=== PATIENT | female | born 1980 | race American Indian/Alaskan Native ===

== ENCOUNTER 2019-04-22 13:00 | Outpatient (RCR) | payer MEDICAID, SELFPAY ==
--- NOTE | 2019-03-25 17:35 | PT.OIE ---
Current Diagnoses Pain in right shoulder (03/25/19) Pain in left shoulder (03/25/19) Spinal stenosis, cervical region (03/25/19) Provider Visit Care Team Role Provider Type Rashmi Garcia MD Primary Care Provider Non-Staff Specialty: Family Practice Address: [address] [place] [address], [id number] Email: Kayley Tineo PA-C Attending Provider Non-Staff Specialty: Medical Address: [address] [place] [address], [id number] Email: Physical Therapy Initial Evaluation PT-OP-A Visit Information Start: 03/25/19 17:34 Freq: Status: Active Protocol: Document 03/25/19 17:35 EA (Rec: 03/25/19 17:39 EA [id number]) Out-Patient Physical Therapy Visit Information Visit Information Visit Type Initial Evaluation Visit Start Time 14:30 Visit Stop Time 15:10 Total Visit Minutes 35 Visit Number 1 PT-OP-B Current Condition Start: 03/25/19 17:34 Freq: Status: Active Protocol: Document 03/25/19 17:30 EA (Rec: 03/26/19 15:01 EA [id number]) Current Condition History of Current Condition Onset Date 2 years ago Current Complaints Multiple spinal and shoulder joint pain. History of Current Condition Patient reports that she has been complaining low,mid,and upper back pain since 2017. She reports an avid runner with distance accumulation of 100 miles per month. She states that she never do any leg strengthening an even stretching. She denies any significant injury recently and she reports that she just get over her pain everyday. She reports X-rays were taken 1 1/2 year ago with diagnosis of multiple spine/shoulder OA. Prior Treatments and Tests Formal PT treatment to both knees more than a year ago X-rays a year and half ago. Future Testing and Treatments Planned None reported. Treatment Goals Patient/Caregiver Goals 1. To learn exercise technique that could prevent to severe condition 2. To be able to run with no post back pain Prior Functional Status Baseline Function- ADL's Independent Baseline Function- Mobility Independent Baseline Function- Gait stiffed pelvis Baseline Function- Work/School Just finished college schooling. Used to work in [employer]. Baseline Function- Recreation/Hobbies Runs 100 miles/ week Current Functional Impairments (Reported) Functional Limitations- ADL's Indep. Pain and difficulty with activities that requires kneeling to both knees. Functional Limitations- Mobility/Gait increased toes out Functional Limitations- Work/School Not at work at this time. Just finished college school Functional Limitations- Recreation/ Unable to run 100 miles a week Hobbies due to increasing pain to both knees during and neck, thoracic, and low back pain post exercises. Personal Factors Other Personal Factors That May Effect Back pain, Vision problems Therapy/Recovery PT-OP-C Subjective Start: 03/25/19 17:34 Freq: Status: Active Protocol: Document 03/25/19 17:35 EA (Rec: 04/01/19 10:12 EA [id number]) OP-PT Subjective Patient Comments Patient Comments I'm a runner and I usually ran over my pain. Pt reports she not running well in the past weeks due to increasing pain. She reports she used to run 100 miles /week more than 1 month ago. Patient Reported Progress Worse Patient Questionnaires Neck Disability Index NDI Score 13/50 Neck Disability Index Impairment 20 to 39% Impaired (Score 10- 19) Quick Dash- Upper Extremity Quick Dash UE Score 30 Quick Dash UE Impairment 20 to 39% Impaired (Score 20- 39) PT-OP-J Posture/Palpation/Skin Start: 03/25/19 17:34 Freq: Status: Active Protocol: Document 03/25/19 17:35 EA (Rec: 04/01/19 10:12 EA [id number]) Posture Evaluation Comments Posture Comments Good upper body posture with very slight fwd head and rounded shoulders Bilateral knee Valgus. Biltaral severe depressed foot arch/pes miki Palpation Assessment Location One Palpation Location B traps, ,left lat mid cervical, Parspinals & thoracis, scap borde Palpation Findings Soft Tissue Tightness Tenderness Trigger Point PT-OP-K Range of Motion Start: 03/25/19 17:34 Freq: Status: Active Protocol: Document 03/25/19 17:35 EA (Rec: 04/01/19 10:12 EA [id number]) Cervical Spine Range of Motion Cervical Spine Active Percentage Testing Position Sitting Flexion 100 Extension 95 Rotation Left 90 Rotation Right 95 Lateral Flexion Left 90 Lateral Flexion Right 90 ROM Limitations Soft Tissue Tightness Lumbar Spine Range of Motion Lumbar Spine Active Percentage Testing Position Standing Flexion 100 Extension 95 Rotation Left 100 Rotation Right 100 Lateral Flexion Left 95 Lateral Flexion Right 95 ROM Limitations Soft Tissue Tightness Shoulder Goniometric Range of Motion Shoulder Right Active Shoulder ROM WFL Yes Internal Rotation 50 Left Active Shoulder ROM WFL Yes Internal Rotation 50 Hip Goniometric Range of Motion Hip Right Active Hip ROM WFL Yes Left Active Hip ROM WFL Yes Knee Goniometric Range of Motion Knee Left Knee ROM WFL Yes Right Knee ROM WFL Yes PT-OP-L Special Tests Start: 03/25/19 17:34 Freq: Status: Active Protocol: Document 03/25/19 17:35 EA (Rec: 04/01/19 10:12 EA [id number]) Special Tests Shoulder Special Tests Kathleen Juan Francisco Impingement Test Results - Elevation Impingement Test Results - PT-OP-M Strength Start: 03/25/19 17:34 Freq: Status: Active Protocol: Document 03/25/19 17:35 EA (Rec: 04/01/19 10:12 EA [id number]) Cervical Spine Strength Cervical Spine Manual Muscle Testing Testing Position Supine Reason Not Measured WFL Trunk Strength Trunk Manual Muscle Testing Testing Position Supine Reason Not Measured WFL Shoulder Strength Shoulder Manual Muscle Testing Right Reason Not Measured WFL Left Reason Not Measured WFL PT-OP-T Assessment and Plan Start: 03/25/19 17:34 Freq: Status: Active Protocol: Document 03/25/19 17:35 EA (Rec: 03/25/19 17:39 EA [id number]) Physical Therapy Assessment Rehab Potential Rehabilitation Potential Good Evaluation Complexity Number of Personal Factors/Comorbidities 1-2 Number of Body Systems Impaired 3 Clinical Presentation at Evaluation Evolving Impairments Impairments Gait Pain Posture ROM Soft Tissue Mobility Goals Four Impairment NDI score 13/50 Jail Goal (LTG) NDI score of < 10/50 LTG Duration 4 wks Three Impairment Impaired information about progressive exercises 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 LTG Duration 5 wks Two Impairment Impaired running distance Jail Goal (LTG) Patient will run more than 50 miles a week with no increasing pain LTG Duration 5 wks One Impairment No HEP in place Jail Goal (LTG) Patient will perform independent HEP on consistent progressive exercises. LTG Duration 4 wks Assessment Summary Assessment Pleasant 38 year old F patient with referring diagnosis of multiple joints OA and mostly at cervicothoracic spine and shoulders. Today patient presented with multiple tender points to both lateral side of the spine, scap borders and both traps, and left shoulder crepitus. Cervical ROM noted difficulty turning to left shoulder due to pain to left cervical region which indicative of slight facets dysfunction at C4-C6 and muscle tightness. Postural analysis reveals slight fwd head with rounded shoulder; noted bilateral knee valgus with severe pes planus . Based on history taking of regular fitness routine and high activity level, patient may be suffering with lacked proper conditioning and lack of flexibility routine exercises. Fascial tightness is also evident to entire back . Patient would greatly benefit with skilled PT to enhance learning in proper conditioning/progressive fitness exercises, correction of muscular imbalances, and LE 's alignment correction. Physical Therapy Plan Frequency and Duration Frequency of Treatment 2x/Week Duration of Treatment 8 wks Plan of Care Start Date 03/25/19 Plan of Care End Date 05/20/19 Therapeutic Interventions Therapeutic Interventions Home Exercise Program Joint Mobilizations Manual Therapy Patient/Caregiver Education Self-Care/Home Management Soft Tissue Mobilization Therapeutic Exercises Next Visit Focus/Plan Next Note Type Treatment Note
--- NOTE | 2019-03-25 17:40 | PT.OPPOC ---
Current Diagnoses Pain in right shoulder (03/25/19) Pain in left shoulder (03/25/19) Spinal stenosis, cervical region (03/25/19) Provider Visit Care Team Role Provider Type Rashmi Garcia MD Primary Care Provider Non-Staff Specialty: Family Practice Address: [address] [place] [address], [id number] Email: Kayley Tineo PA-C Attending Provider Non-Staff Specialty: Medical Address: [address] [place] [address], [id number] Email: Plan Of Care PT-OP-T Assessment and Plan Start: 03/25/19 17:34 Freq: Status: Active Protocol: Document 03/25/19 17:35 EA (Rec: 03/25/19 17:39 EA [id number]) Physical Therapy Assessment Rehab Potential Rehabilitation Potential Good Evaluation Complexity Number of Personal Factors/Comorbidities 1-2 Number of Body Systems Impaired 3 Clinical Presentation at Evaluation Evolving Impairments Impairments Gait Pain Posture ROM Soft Tissue Mobility Goals Four Impairment NDI score 13/50 Nursing Home Goal (LTG) NDI score of < 10/50 LTG Duration 4 wks Three Impairment Impaired information about progressive exercises Air [employer]ore Goal (LTG) Patient will perform progressive running safely with increase learning toward exercises recovery. LTG Duration 5 wks Two Impairment Impaired running distance Nursing Home Goal (LTG) Patient will run more than 50 miles a week with no increasing pain LTG Duration 5 wks One Impairment No HEP in place Nursing Home Goal (LTG) Patient will perform independent HEP on consistent progressive exercises. LTG Duration 4 wks Assessment Summary Assessment Pleasant 38 year old F patient with referring diagnosis of multiple joints OA and mostly at cervicothoracic spine and shoulders. Today patient presented with multiple tender points to both lateral side of the spine, scap borders and both traps, and left shoulder crepitus. Cervical ROM noted difficulty turning to left shoulder due to pain to left cervical region which indicative of slight facets dysfunction at C4-C6 and muscle tightness. Postural analysis reveals slight fwd head with rounded shoulder; noted bilateral knee valgus with severe pes planus . Based on history taking of regular fitness routine and high activity level, patient may be suffering with lacked proper conditioning and lack of flexibility routine exercises. Fascial tightness is also evident to entire back . Patient would greatly benefit with skilled PT to enhance learning in proper conditioning/progressive fitness exercises, correction of muscular imbalances, and LE 's alignment correction. Physical Therapy Plan Frequency and Duration Frequency of Treatment 2x/Week Duration of Treatment 8 wks Plan of Care Start Date 03/25/19 Plan of Care End Date 05/20/19 Therapeutic Interventions Therapeutic Interventions Home Exercise Program Joint Mobilizations Manual Therapy Patient/Caregiver Education Self-Care/Home Management Soft Tissue Mobilization Therapeutic Exercises Next Visit Focus/Plan Next Note Type Treatment Note Plan of Care Dates Plan of Care Start Date 03/25/19 Plan of Care End Date 05/20/19 Please Sign and Return: I have reviewed this Plan of Care and certify that the skilled therapy services above are required to meet the patient?s needs. Physician Signature Date Printed Name and Credentials Clinical Instructor Signature Printed Name and Credentials
--- NOTE | 2019-04-02 15:57 | PT.OTN ---
Current Diagnoses Pain in right shoulder (04/02/19) Pain in left shoulder (04/02/19) Spinal stenosis, cervical region (04/02/19) Physical Therapy Treatment Note PT-OP-A Visit Information Start: 03/25/19 17:34 Freq: Status: Active Protocol: Document 04/02/19 15:11 EA (Rec: 04/02/19 15:18 EA [id number]) Out-Patient Physical Therapy Visit Information Visit Information Visit Type Treatment Note Visit Start Time 14:30 Visit Stop Time 15:15 Total Visit Minutes 43 Visit Number 2 PT-OP-B Current Condition Start: 03/25/19 17:34 Freq: Status: Active Protocol: Document 03/25/19 17:30 EA (Rec: 03/26/19 15:01 EA [id number]) Current Condition History of Current Condition Onset Date 2 years ago Current Complaints Multiple spinal and shoulder joint pain. History of Current Condition Patient reports that she has been complaining low,mid,and upper back pain since 2017. She reports an avid runner with distance accumulation of 100 miles per month. She states that she never do any leg strenghening an even stretching. She denies any significant injury recently and she reports that she just get over her pain everyday. She reports X-rays were taken 1 1/2 year ago with diagnosis of multiple spine/shoulder OA. Prior Treatments and Tests Formal PT treament to both knees more than a year ago X-rays a year and half ago. Future Testing and Treatments Planned None reported. Treatment Goals Patient/Caregiver Goals 1. To learn exercise technique that could prevent to severe condition 2. To be able to run with no post back pain Prior Functional Status Baseline Function- ADL's Independent Baseline Function- Mobility Independent Baseline Function- Gait stiffed pelvis Baseline Function- Work/School Just finished college schooling. Used to work in [email or web address]. Baseline Function- Recreation/Hobbies Runs 100 miles/ week Current Functional Impairments (Reported) Functional Limitations- ADL's Indep. Pain and difficulty with activites that requires kneeling to both knees. Functional Limitations- Mobility/Gait increased toes out Functional Limitations- Work/School Not at work at this time. Just finished college school Functional Limitations- Recreation/ Unable to run 100 miles a week Hobbies due to increasing pain to both knees during and neck, thoracic, and low back pain post exercises. Personal Factors Other Personal Factors That May Effect Back pain, Vision problems Therapy/Recovery PT-OP-C Subjective Start: 03/25/19 17:34 Freq: Status: Active Protocol: Document 04/02/19 15:11 EA (Rec: 04/02/19 15:18 EA [id number]) OP-PT Subjective Patient Comments Patient Comments Pt reports both knees, shoulders and neck still sore. PT-OP-J Posture/Palpation/Skin Start: 03/25/19 17:34 Freq: Status: Active Protocol: Document 03/25/19 17:35 EA (Rec: 04/01/19 10:12 EA [id number]) Posture Evaluation Comments Posture Comments Good upper body posture with very slight fwd head and rounded shoulders Bilateral knee Valgus. Biltaral severe depressed foot arch/pes miki Palpation Assessment Location One Palpation Location B traps, ,left lat mid cervical, Parspinals & thoracis, scap borde Palpation Findings Soft Tissue Tightness Tenderness Trigger Point PT-OP-K Range of Motion Start: 03/25/19 17:34 Freq: Status: Active Protocol: Document 03/25/19 17:35 EA (Rec: 04/01/19 10:12 EA [id number]) Cervical Spine Range of Motion Cervical Spine Active Percentage Testing Position Sitting Flexion 100 Extension 95 Rotation Left 90 Rotation Right 95 Lateral Flexion Left 90 Lateral Flexion Right 90 ROM Limitations Soft Tissue Tightness Lumbar Spine Range of Motion Lumbar Spine Active Percentage Testing Position Standing Flexion 100 Extension 95 Rotation Left 100 Rotation Right 100 Lateral Flexion Left 95 Lateral Flexion Right 95 ROM Limitations Soft Tissue Tightness Shoulder Goniometric Range of Motion Shoulder Right Active Shoulder ROM WFL Yes Internal Rotation 50 Left Active Shoulder ROM WFL Yes Internal Rotation 50 Hip Goniometric Range of Motion Hip Right Active Hip ROM WFL Yes Left Active Hip ROM WFL Yes Knee Goniometric Range of Motion Knee Left Knee ROM WFL Yes Right Knee ROM WFL Yes PT-OP-L Special Tests Start: 03/25/19 17:34 Freq: Status: Active Protocol: Document 03/25/19 17:35 EA (Rec: 04/01/19 10:12 EA [id number]) Special Tests Shoulder Special Tests Kathleen Juan Francisco Impingement Test Results - Elevation Impingement Test Results - PT-OP-M Strength Start: 03/25/19 17:34 Freq: Status: Active Protocol: Document 03/25/19 17:35 EA (Rec: 04/01/19 10:12 EA [id number]) Cervical Spine Strength Cervical Spine Manual Muscle Testing Testing Position Supine Reason Not Measured WFL Trunk Strength Trunk Manual Muscle Testing Testing Position Supine Reason Not Measured WFL Shoulder Strength Shoulder Manual Muscle Testing Right Reason Not Measured WFL Left Reason Not Measured WFL PT-OP-Q Treatments Start: 03/25/19 17:34 Freq: Status: Active Protocol: Document 04/02/19 15:11 EA (Rec: 04/02/19 15:18 EA [id number]) Cardio Equipment Treadmill Duration (Minutes) 8 Speed 3.7 Therapeutic Exercises Supine Exercises 3 Supine Exercise Name Partial sit-up w/ marching Reps/Minutes x 20 reps x 2 sets 2 Supine Exercise Name PPT with SLR Reps/Minutes 10 reps x 2 sets each leg 1 Supine Exercise Name PPT w/ marching Reps/Minutes x 20 reps x 2 sets Standing Exercises 1 Standing Exercise Name Corrected squats Reps/Minutes x 15 reps x 2 Other Exercises 3 Other Exercise Name Nichole pose Reps/Minutes x 30SH x 2 reps 2 Other Exercise Name Camel and Cat Reps/Minutes x 15 reps 1 Other Exercise Name Thread and needle Reps/Minutes x 10 reps x 2 sets Manual Therapy Treatment Soft Tissue Mobilization 1 Body Location Pracervicals, upper traps, parathoracis Mobilization Type Myofascial Release Rolling Trigger Point Release Body Position Prone PT-OP-R Modalities Start: 03/25/19 17:34 Freq: Status: Active Protocol: Document 04/02/19 15:11 EA (Rec: 04/02/19 15:18 EA [id number]) Hot Pack/Cold Pack Treatment Hot Pack Location upper back and neck Treatment Duration (minutes) 10 Patient Tolerance Good PT-OP-T Assessment and Plan Start: 03/25/19 17:34 Freq: Status: Active Protocol: Document 04/02/19 15:55 EA (Rec: 04/02/19 15:57 EA [id number]) Physical Therapy Assessment Assessment Summary Assessment Patient exhibit weak core and hyper arm swing during slow jog. Requires cues with exercises form. Tolerated treatment. Physical Therapy Plan Next Visit Focus/Plan Next Note Type Treatment Note Next Visit Plan provide HEP images
--- NOTE | 2019-04-04 17:20 | PT.OTN ---
Current Diagnoses Pain in right shoulder (04/04/19) Pain in left shoulder (04/04/19) Spinal stenosis, cervical region (04/04/19) Physical Therapy Treatment Note PT-OP-A Visit Information Start: 03/25/19 17:34 Freq: Status: Active Protocol: Document 04/04/19 16:42 EA (Rec: 04/04/19 16:53 EA [id number]) Out-Patient Physical Therapy Visit Information Visit Information Visit Type Initial Evaluation Visit Start Time 15:15 Visit Stop Time 16:00 Total Visit Minutes 48 Visit Number 3 PT-OP-B Current Condition Start: 03/25/19 17:34 Freq: Status: Active Protocol: Document 03/25/19 17:30 EA (Rec: 03/26/19 15:01 EA [id number]) Current Condition History of Current Condition Onset Date 2 years ago Current Complaints Multiple spinal and shoulder joint pain. History of Current Condition Patient reports that she has been complaining low,mid,and upper back pain since 2017. She reports an avid runner with distance accumulation of 100 miles per month. She states that she never do any leg strenghening an even stretching. She denies any significant injury recently and she reports that she just get over her pain everyday. She reports X-rays were taken 1 1/2 year ago with diagnosis of multiple spine/shoulder OA. Prior Treatments and Tests Formal PT treament to both knees more than a year ago X-rays a year and half ago. Future Testing and Treatments Planned None reported. Treatment Goals Patient/Caregiver Goals 1. To learn exercise technique that could prevent to severe condition 2. To be able to run with no post back pain Prior Functional Status Baseline Function- ADL's Independent Baseline Function- Mobility Independent Baseline Function- Gait stiffed pelvis Baseline Function- Work/School Just finished college schooling. Used to work in [email or web address]. Baseline Function- Recreation/Hobbies Runs 100 miles/ week Current Functional Impairments (Reported) Functional Limitations- ADL's Indep. Pain and difficulty with activites that requires kneeling to both knees. Functional Limitations- Mobility/Gait increased toes out Functional Limitations- Work/School Not at work at this time. Just finished college school Functional Limitations- Recreation/ Unable to run 100 miles a week Hobbies due to increasing pain to both knees during and neck, thoracic, and low back pain post exercises. Personal Factors Other Personal Factors That May Effect Back pain, Vision problems Therapy/Recovery PT-OP-C Subjective Start: 03/25/19 17:34 Freq: Status: Active Protocol: Document 04/04/19 16:42 EA (Rec: 04/04/19 16:53 EA [id number]) OP-PT Subjective Patient Comments Patient Comments Pt reports feels therex is helping her. PT-OP-J Posture/Palpation/Skin Start: 03/25/19 17:34 Freq: Status: Active Protocol: Document 03/25/19 17:35 EA (Rec: 04/01/19 10:12 EA [id number]) Posture Evaluation Comments Posture Comments Good upper body posture with very slight fwd head and rounded shoulders Bilateral knee Valgus. Biltaral severe depressed foot arch/pes miki Palpation Assessment Location One Palpation Location B traps, ,left lat mid cervical, Parspinals & thoracis, scap borde Palpation Findings Soft Tissue Tightness Tenderness Trigger Point PT-OP-K Range of Motion Start: 03/25/19 17:34 Freq: Status: Active Protocol: Document 03/25/19 17:35 EA (Rec: 04/01/19 10:12 EA [id number]) Cervical Spine Range of Motion Cervical Spine Active Percentage Testing Position Sitting Flexion 100 Extension 95 Rotation Left 90 Rotation Right 95 Lateral Flexion Left 90 Lateral Flexion Right 90 ROM Limitations Soft Tissue Tightness Lumbar Spine Range of Motion Lumbar Spine Active Percentage Testing Position Standing Flexion 100 Extension 95 Rotation Left 100 Rotation Right 100 Lateral Flexion Left 95 Lateral Flexion Right 95 ROM Limitations Soft Tissue Tightness Shoulder Goniometric Range of Motion Shoulder Right Active Shoulder ROM WFL Yes Internal Rotation 50 Left Active Shoulder ROM WFL Yes Internal Rotation 50 Hip Goniometric Range of Motion Hip Right Active Hip ROM WFL Yes Left Active Hip ROM WFL Yes Knee Goniometric Range of Motion Knee Left Knee ROM WFL Yes Right Knee ROM WFL Yes PT-OP-L Special Tests Start: 03/25/19 17:34 Freq: Status: Active Protocol: Document 03/25/19 17:35 EA (Rec: 04/01/19 10:12 EA [id number]) Special Tests Shoulder Special Tests Kathleen Juan Francisco Impingement Test Results - Elevation Impingement Test Results - PT-OP-M Strength Start: 03/25/19 17:34 Freq: Status: Active Protocol: Document 03/25/19 17:35 EA (Rec: 04/01/19 10:12 EA [id number]) Cervical Spine Strength Cervical Spine Manual Muscle Testing Testing Position Supine Reason Not Measured WFL Trunk Strength Trunk Manual Muscle Testing Testing Position Supine Reason Not Measured WFL Shoulder Strength Shoulder Manual Muscle Testing Right Reason Not Measured WFL Left Reason Not Measured WFL PT-OP-Q Treatments Start: 03/25/19 17:34 Freq: Status: Active Protocol: Document 04/04/19 16:42 EA (Rec: 04/04/19 16:53 EA [id number]) Cardio Equipment Treadmill Duration (Minutes) 8 Speed 3.7 Therapeutic Exercises Supine Exercises 3 Supine Exercise Name Partial sit-up w/ marching Reps/Minutes x 20 reps x 2 sets 2 Supine Exercise Name PPT with SLR Reps/Minutes 10 reps x 2 sets each leg 1 Supine Exercise Name PPT w/ marching Reps/Minutes x 20 reps x 2 sets Standing Exercises 1 Standing Exercise Name Corrected squats Reps/Minutes x 15 reps x 2 Other Exercises 3 Other Exercise Name Nichole pose Reps/Minutes x 30SH x 2 reps 2 Other Exercise Name Camel and Cat Reps/Minutes x 15 reps 1 Other Exercise Name Thread and needle Reps/Minutes x 10 reps x 2 sets Manual Therapy Treatment Soft Tissue Mobilization 1 Body Location Pracervicals, upper traps, parathoracis Mobilization Type Myofascial Release Rolling Trigger Point Release Body Position Prone PT-OP-R Modalities Start: 03/25/19 17:34 Freq: Status: Active Protocol: Document 04/04/19 16:42 EA (Rec: 04/04/19 16:53 EA [id number]) Hot Pack/Cold Pack Treatment Hot Pack Location upper back and neck Treatment Duration (minutes) 10 Patient Tolerance Good PT-OP-T Assessment and Plan Start: 03/25/19 17:34 Freq: Status: Active Protocol: Document 04/04/19 16:42 EA (Rec: 04/04/19 16:53 EA [id number]) Physical Therapy Assessment Assessment Summary Assessment Patient exhibits improved exercise form and tolerated treatment with no signs of discomfort. Physical Therapy Plan Next Visit Focus/Plan Next Note Type Treatment Note Next Visit Plan provide HEP images
--- NOTE | 2019-04-11 16:54 | PT.OTN ---
Current Diagnoses Pain in right shoulder (04/11/19) Pain in left shoulder (04/11/19) Spinal stenosis, cervical region (04/11/19) Physical Therapy Treatment Note PT-OP-A Visit Information Start: 03/25/19 17:34 Freq: Status: Active Protocol: Document 04/11/19 15:56 EA (Rec: 04/11/19 16:02 EA [id number]) Out-Patient Physical Therapy Visit Information Visit Information Visit Type Treatment Note Visit Start Time 15:15 Visit Stop Time 16:08 Total Visit Minutes 53 Visit Number 4 PT-OP-B Current Condition Start: 03/25/19 17:34 Freq: Status: Active Protocol: Document 03/25/19 17:30 EA (Rec: 03/26/19 15:01 EA [id number]) Current Condition History of Current Condition Onset Date 2 years ago Current Complaints Multiple spinal and shoulder joint pain. History of Current Condition Patient reports that she has been complaining low,mid,and upper back pain since 2017. She reports an avid runner with distance accumulation of 100 miles per month. She states that she never do any leg strenghening an even stretching. She denies any significant injury recently and she reports that she just get over her pain everyday. She reports X-rays were taken 1 1/2 year ago with diagnosis of multiple spine/shoulder OA. Prior Treatments and Tests Formal PT treament to both knees more than a year ago X-rays a year and half ago. Future Testing and Treatments Planned None reported. Treatment Goals Patient/Caregiver Goals 1. To learn exercise technique that could prevent to severe condition 2. To be able to run with no post back pain Prior Functional Status Baseline Function- ADL's Independent Baseline Function- Mobility Independent Baseline Function- Gait stiffed pelvis Baseline Function- Work/School Just finished college schooling. Used to work in [employer]. Baseline Function- Recreation/Hobbies Runs 100 miles/ week Current Functional Impairments (Reported) Functional Limitations- ADL's Indep. Pain and difficulty with activites that requires kneeling to both knees. Functional Limitations- Mobility/Gait increased toes out Functional Limitations- Work/School Not at work at this time. Just finished college school Functional Limitations- Recreation/ Unable to run 100 miles a week Hobbies due to increasing pain to both knees during and neck, thoracic, and low back pain post exercises. Personal Factors Other Personal Factors That May Effect Back pain, Vision problems Therapy/Recovery PT-OP-C Subjective Start: 03/25/19 17:34 Freq: Status: Active Protocol: Document 04/11/19 15:56 EA (Rec: 04/11/19 16:02 EA [id number]) OP-PT Subjective Patient Comments Patient Comments Pt reportslow back hurts very minimal after slowing down with running. 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 PT-OP-J Posture/Palpation/Skin Start: 03/25/19 17:34 Freq: Status: Active Protocol: Document 03/25/19 17:35 EA (Rec: 04/01/19 10:12 EA [id number]) Posture Evaluation Comments Posture Comments Good upper body posture with very slight fwd head and rounded shoulders Bilateral knee Valgus. Biltaral severe depressed foot arch/pes miki Palpation Assessment Location One Palpation Location B traps, ,left lat mid cervical, Parspinals & thoracis, scap borde Palpation Findings Soft Tissue Tightness Tenderness Trigger Point PT-OP-K Range of Motion Start: 03/25/19 17:34 Freq: Status: Active Protocol: Document 03/25/19 17:35 EA (Rec: 04/01/19 10:12 EA [id number]) Cervical Spine Range of Motion Cervical Spine Active Percentage Testing Position Sitting Flexion 100 Extension 95 Rotation Left 90 Rotation Right 95 Lateral Flexion Left 90 Lateral Flexion Right 90 ROM Limitations Soft Tissue Tightness Lumbar Spine Range of Motion Lumbar Spine Active Percentage Testing Position Standing Flexion 100 Extension 95 Rotation Left 100 Rotation Right 100 Lateral Flexion Left 95 Lateral Flexion Right 95 ROM Limitations Soft Tissue Tightness Shoulder Goniometric Range of Motion Shoulder Right Active Shoulder ROM WFL Yes Internal Rotation 50 Left Active Shoulder ROM WFL Yes Internal Rotation 50 Hip Goniometric Range of Motion Hip Right Active Hip ROM WFL Yes Left Active Hip ROM WFL Yes Knee Goniometric Range of Motion Knee Left Knee ROM WFL Yes Right Knee ROM WFL Yes PT-OP-L Special Tests Start: 03/25/19 17:34 Freq: Status: Active Protocol: Document 03/25/19 17:35 EA (Rec: 04/01/19 10:12 EA [id number]) Special Tests Shoulder Special Tests Kathleen Juan Francisco Impingement Test Results - Elevation Impingement Test Results - PT-OP-M Strength Start: 03/25/19 17:34 Freq: Status: Active Protocol: Document 03/25/19 17:35 EA (Rec: 04/01/19 10:12 EA [id number]) Cervical Spine Strength Cervical Spine Manual Muscle Testing Testing Position Supine Reason Not Measured WFL Trunk Strength Trunk Manual Muscle Testing Testing Position Supine Reason Not Measured WFL Shoulder Strength Shoulder Manual Muscle Testing Right Reason Not Measured WFL Left Reason Not Measured WFL PT-OP-Q Treatments Start: 03/25/19 17:34 Freq: Status: Active Protocol: Document 04/11/19 15:56 EA (Rec: 04/11/19 16:02 EA [id number]) Cardio Equipment Treadmill Duration (Minutes) 5 Speed 3.7 Therapeutic Exercises Supine Exercises 3 Supine Exercise Name Partial sit-up w/ marching Reps/Minutes x 20 reps x 2 sets 2 Supine Exercise Name PPT with SLR Reps/Minutes 10 reps x 2 sets each leg 1 Supine Exercise Name PPT w/ marching Reps/Minutes x 20 reps x 2 sets Prone Exercises 1 Prone Exercise Name Passive quads stretch Reps/Minutes x 15sh x 2 reps Other Exercises 5 Other Exercise Name Elbow Plank: Leg side to side, Mountain climber, hip extension Reps/Minutes x 30 sec each 4 Other Exercise Name side step squat with DB front raise Resistance YTB Reps/Minutes x 12 ft x 2 laps 3 Other Exercise Name Nichole pose Reps/Minutes x 30SH x 2 reps 2 Other Exercise Name Camel and Cat Reps/Minutes x 15 reps 1 Other Exercise Name Thread and needle Reps/Minutes x 10 reps x 2 sets Manual Therapy Treatment Soft Tissue Mobilization 1 Body Location Pracervicals, upper traps, parathoracis Mobilization Type Myofascial Release Rolling Trigger Point Release Body Position Prone PT-OP-R Modalities Start: 03/25/19 17:34 Freq: Status: Active Protocol: Document 04/11/19 15:56 EA (Rec: 04/11/19 16:02 EA [id number]) Hot Pack/Cold Pack Treatment Hot Pack Location upper back and neck Treatment Duration (minutes) 10 Patient Tolerance Good PT-OP-T Assessment and Plan Start: 03/25/19 17:34 Freq: Status: Active Protocol: Document 04/11/19 16:38 EA (Rec: 04/11/19 16:40 EA [id number]) Physical Therapy Assessment Assessment Summary Assessment Patient performed therex with good form; cues to plank exercises insure less pressure to lumbar spine. Patient is very glad with her treatment session. Cont with current plan, provide HEP next visit with images. Physical Therapy Plan Next Visit Focus/Plan Next Note Type Treatment Note Next Visit Plan HEP with images
--- NOTE | 2019-04-11 16:56 | PT.OTN ---
Current Diagnoses Pain in right shoulder (04/11/19) Pain in left shoulder (04/11/19) Spinal stenosis, cervical region (04/11/19) Physical Therapy Treatment Note PT-OP-A Visit Information Start: 03/25/19 17:34 Freq: Status: Active Protocol: Document 04/11/19 15:56 EA (Rec: 04/11/19 16:02 EA [id number]) Out-Patient Physical Therapy Visit Information Visit Information Visit Type Treatment Note Visit Start Time 15:15 Visit Stop Time 16:08 Total Visit Minutes 53 Visit Number 4 PT-OP-B Current Condition Start: 03/25/19 17:34 Freq: Status: Active Protocol: Document 03/25/19 17:30 EA (Rec: 03/26/19 15:01 EA [id number]) Current Condition History of Current Condition Onset Date 2 years ago Current Complaints Multiple spinal and shoulder joint pain. History of Current Condition Patient reports that she has been complaining low,mid,and upper back pain since 2017. She reports an avid runner with distance accumulation of 100 miles per month. She states that she never do any leg strenghening an even stretching. She denies any significant injury recently and she reports that she just get over her pain everyday. She reports X-rays were taken 1 1/2 year ago with diagnosis of multiple spine/shoulder OA. Prior Treatments and Tests Formal PT treament to both knees more than a year ago X-rays a year and half ago. Future Testing and Treatments Planned None reported. Treatment Goals Patient/Caregiver Goals 1. To learn exercise technique that could prevent to severe condition 2. To be able to run with no post back pain Prior Functional Status Baseline Function- ADL's Independent Baseline Function- Mobility Independent Baseline Function- Gait stiffed pelvis Baseline Function- Work/School Just finished college schooling. Used to work in [employer]. Baseline Function- Recreation/Hobbies Runs 100 miles/ week Current Functional Impairments (Reported) Functional Limitations- ADL's Indep. Pain and difficulty with activites that requires kneeling to both knees. Functional Limitations- Mobility/Gait increased toes out Functional Limitations- Work/School Not at work at this time. Just finished college school Functional Limitations- Recreation/ Unable to run 100 miles a week Hobbies due to increasing pain to both knees during and neck, thoracic, and low back pain post exercises. Personal Factors Other Personal Factors That May Effect Back pain, Vision problems Therapy/Recovery PT-OP-C Subjective Start: 03/25/19 17:34 Freq: Status: Active Protocol: Document 04/11/19 15:56 EA (Rec: 04/11/19 16:02 EA [id number]) OP-PT Subjective Patient Comments Patient Comments Pt reportslow back hurts very minimal after slowing down with running. 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 PT-OP-J Posture/Palpation/Skin Start: 03/25/19 17:34 Freq: Status: Active Protocol: Document 03/25/19 17:35 EA (Rec: 04/01/19 10:12 EA [id number]) Posture Evaluation Comments Posture Comments Good upper body posture with very slight fwd head and rounded shoulders Bilateral knee Valgus. Biltaral severe depressed foot arch/pes miki Palpation Assessment Location One Palpation Location B traps, ,left lat mid cervical, Parspinals & thoracis, scap borde Palpation Findings Soft Tissue Tightness Tenderness Trigger Point PT-OP-K Range of Motion Start: 03/25/19 17:34 Freq: Status: Active Protocol: Document 03/25/19 17:35 EA (Rec: 04/01/19 10:12 EA [id number]) Cervical Spine Range of Motion Cervical Spine Active Percentage Testing Position Sitting Flexion 100 Extension 95 Rotation Left 90 Rotation Right 95 Lateral Flexion Left 90 Lateral Flexion Right 90 ROM Limitations Soft Tissue Tightness Lumbar Spine Range of Motion Lumbar Spine Active Percentage Testing Position Standing Flexion 100 Extension 95 Rotation Left 100 Rotation Right 100 Lateral Flexion Left 95 Lateral Flexion Right 95 ROM Limitations Soft Tissue Tightness Shoulder Goniometric Range of Motion Shoulder Right Active Shoulder ROM WFL Yes Internal Rotation 50 Left Active Shoulder ROM WFL Yes Internal Rotation 50 Hip Goniometric Range of Motion Hip Right Active Hip ROM WFL Yes Left Active Hip ROM WFL Yes Knee Goniometric Range of Motion Knee Left Knee ROM WFL Yes Right Knee ROM WFL Yes PT-OP-L Special Tests Start: 03/25/19 17:34 Freq: Status: Active Protocol: Document 03/25/19 17:35 EA (Rec: 04/01/19 10:12 EA [id number]) Special Tests Shoulder Special Tests Kathleen Juan Francisco Impingement Test Results - Elevation Impingement Test Results - PT-OP-M Strength Start: 03/25/19 17:34 Freq: Status: Active Protocol: Document 03/25/19 17:35 EA (Rec: 04/01/19 10:12 EA [id number]) Cervical Spine Strength Cervical Spine Manual Muscle Testing Testing Position Supine Reason Not Measured WFL Trunk Strength Trunk Manual Muscle Testing Testing Position Supine Reason Not Measured WFL Shoulder Strength Shoulder Manual Muscle Testing Right Reason Not Measured WFL Left Reason Not Measured WFL PT-OP-Q Treatments Start: 03/25/19 17:34 Freq: Status: Active Protocol: Document 04/11/19 15:56 EA (Rec: 04/11/19 16:02 EA [id number]) Cardio Equipment Treadmill Duration (Minutes) 5 Speed 3.7 Therapeutic Exercises Supine Exercises 3 Supine Exercise Name Partial sit-up w/ marching Reps/Minutes x 20 reps x 2 sets 2 Supine Exercise Name PPT with SLR Reps/Minutes 10 reps x 2 sets each leg 1 Supine Exercise Name PPT w/ marching Reps/Minutes x 20 reps x 2 sets Prone Exercises 1 Prone Exercise Name Passive quads stretch Reps/Minutes x 15sh x 2 reps Other Exercises 5 Other Exercise Name Elbow Plank: Leg side to side, Mountain climber, hip extension Reps/Minutes x 30 sec each 4 Other Exercise Name side step squat with DB front raise Resistance YTB Reps/Minutes x 12 ft x 2 laps 3 Other Exercise Name Nichole pose Reps/Minutes x 30SH x 2 reps 2 Other Exercise Name Camel and Cat Reps/Minutes x 15 reps 1 Other Exercise Name Thread and needle Reps/Minutes x 10 reps x 2 sets Manual Therapy Treatment Soft Tissue Mobilization 1 Body Location Pracervicals, upper traps, parathoracis Mobilization Type Myofascial Release Rolling Trigger Point Release Body Position Prone PT-OP-R Modalities Start: 03/25/19 17:34 Freq: Status: Active Protocol: Document 04/11/19 15:56 EA (Rec: 04/11/19 16:02 EA [id number]) Hot Pack/Cold Pack Treatment Hot Pack Location upper back and neck Treatment Duration (minutes) 10 Patient Tolerance Good PT-OP-T Assessment and Plan Start: 03/25/19 17:34 Freq: Status: Active Protocol: Document 04/11/19 16:38 EA (Rec: 04/11/19 16:40 EA [id number]) Physical Therapy Assessment Assessment Summary Assessment Patient performed therex with good form; cues to plank exercises insure less pressure to lumbar spine. Patient is very glad with her treatment session. Cont with current plan, provide HEP next visit with images. Physical Therapy Plan Next Visit Focus/Plan Next Note Type Treatment Note Next Visit Plan HEP with images
--- NOTE | 2019-04-15 13:49 | PT.OTN ---
Current Diagnoses Pain in right shoulder (04/15/19) Pain in left shoulder (04/15/19) Spinal stenosis, cervical region (04/15/19) Physical Therapy Treatment Note PT-OP-A Visit Information Start: 03/25/19 17:34 Freq: Status: Active Protocol: Document 04/15/19 13:40 EA (Rec: 04/15/19 13:45 EA [id number]) Out-Patient Physical Therapy Visit Information Visit Information Visit Type Treatment Note Visit Start Time 13:00 Visit Stop Time 13:48 Total Visit Minutes 48 Visit Number 5 PT-OP-B Current Condition Start: 03/25/19 17:34 Freq: Status: Active Protocol: Document 03/25/19 17:30 EA (Rec: 03/26/19 15:01 EA [id number]) Current Condition History of Current Condition Onset Date 2 years ago Current Complaints Multiple spinal and shoulder joint pain. History of Current Condition Patient reports that she has been complaining low,mid,and upper back pain since 2017. She reports an avid runner with distance accumulation of 100 miles per month. She states that she never do any leg strenghening an even stretching. She denies any significant injury recently and she reports that she just get over her pain everyday. She reports X-rays were taken 1 1/2 year ago with diagnosis of multiple spine/shoulder OA. Prior Treatments and Tests Formal PT treament to both knees more than a year ago X-rays a year and half ago. Future Testing and Treatments Planned None reported. Treatment Goals Patient/Caregiver Goals 1. To learn exercise technique that could prevent to severe condition 2. To be able to run with no post back pain Prior Functional Status Baseline Function- ADL's Independent Baseline Function- Mobility Independent Baseline Function- Gait stiffed pelvis Baseline Function- Work/School Just finished college schooling. Used to work in [employer]. Baseline Function- Recreation/Hobbies Runs 100 miles/ week Current Functional Impairments (Reported) Functional Limitations- ADL's Indep. Pain and difficulty with activites that requires kneeling to both knees. Functional Limitations- Mobility/Gait increased toes out Functional Limitations- Work/School Not at work at this time. Just finished college school Functional Limitations- Recreation/ Unable to run 100 miles a week Hobbies due to increasing pain to both knees during and neck, thoracic, and low back pain post exercises. Personal Factors Other Personal Factors That May Effect Back pain, Vision problems Therapy/Recovery PT-OP-C Subjective Start: 03/25/19 17:34 Freq: Status: Active Protocol: Document 04/15/19 13:40 EA (Rec: 04/15/19 13:45 EA [id number]) OP-PT Subjective Patient Comments Patient Comments I have feeling pretty good PT-OP-J Posture/Palpation/Skin Start: 03/25/19 17:34 Freq: Status: Active Protocol: Document 03/25/19 17:35 EA (Rec: 04/01/19 10:12 EA [id number]) Posture Evaluation Comments Posture Comments Good upper body posture with very slight fwd head and rounded shoulders Bilateral knee Valgus. Biltaral severe depressed foot arch/pes miki Palpation Assessment Location One Palpation Location B traps, ,left lat mid cervical, Parspinals & thoracis, scap borde Palpation Findings Soft Tissue Tightness Tenderness Trigger Point PT-OP-K Range of Motion Start: 03/25/19 17:34 Freq: Status: Active Protocol: Document 03/25/19 17:35 EA (Rec: 04/01/19 10:12 EA [id number]) Cervical Spine Range of Motion Cervical Spine Active Percentage Testing Position Sitting Flexion 100 Extension 95 Rotation Left 90 Rotation Right 95 Lateral Flexion Left 90 Lateral Flexion Right 90 ROM Limitations Soft Tissue Tightness Lumbar Spine Range of Motion Lumbar Spine Active Percentage Testing Position Standing Flexion 100 Extension 95 Rotation Left 100 Rotation Right 100 Lateral Flexion Left 95 Lateral Flexion Right 95 ROM Limitations Soft Tissue Tightness Shoulder Goniometric Range of Motion Shoulder Right Active Shoulder ROM WFL Yes Internal Rotation 50 Left Active Shoulder ROM WFL Yes Internal Rotation 50 Hip Goniometric Range of Motion Hip Right Active Hip ROM WFL Yes Left Active Hip ROM WFL Yes Knee Goniometric Range of Motion Knee Left Knee ROM WFL Yes Right Knee ROM WFL Yes PT-OP-L Special Tests Start: 03/25/19 17:34 Freq: Status: Active Protocol: Document 03/25/19 17:35 EA (Rec: 04/01/19 10:12 EA [id number]) Special Tests Shoulder Special Tests Kathleen Juan Francisco Impingement Test Results - Elevation Impingement Test Results - PT-OP-M Strength Start: 03/25/19 17:34 Freq: Status: Active Protocol: Document 03/25/19 17:35 EA (Rec: 04/01/19 10:12 EA [id number]) Cervical Spine Strength Cervical Spine Manual Muscle Testing Testing Position Supine Reason Not Measured WFL Trunk Strength Trunk Manual Muscle Testing Testing Position Supine Reason Not Measured WFL Shoulder Strength Shoulder Manual Muscle Testing Right Reason Not Measured WFL Left Reason Not Measured WFL PT-OP-Q Treatments Start: 03/25/19 17:34 Freq: Status: Active Protocol: Document 04/15/19 13:40 EA (Rec: 04/15/19 13:45 EA [id number]) Cardio Equipment Bicycle (Upright) Duration (Minutes) 5 Resistance 3 Gym Equipment Cable Column (Body Solid) Other- 1 Details Cable sit to stand row Resistance 30# Reps/Time x15 reps x 2 Therapeutic Exercises Supine Exercises 3 Supine Exercise Name Partial sit-up w/ marching Reps/Minutes x 20 reps x 2 sets 2 Supine Exercise Name PPT with SLR Reps/Minutes 10 reps x 2 sets each leg 1 Supine Exercise Name PPT w/ marching Reps/Minutes x 20 reps x 2 sets Prone Exercises 1 Prone Exercise Name Passive quads stretch Reps/Minutes x 15sh x 2 reps Standing Exercises 1 Standing Exercise Name Side steps quats with shoulder press Resistance 3# Reps/Minutes x 12 ft x 3 laps Other Exercises 5 Other Exercise Name Elbow Plank: Leg side to side, Mountain climber, hip extension Reps/Minutes x 30 sec each 3 Other Exercise Name Nichole pose Reps/Minutes x 30SH x 2 reps 2 Other Exercise Name Camel and Cat Reps/Minutes x 15 reps 1 Other Exercise Name Thread and needle Reps/Minutes x 10 reps x 2 sets Manual Therapy Treatment Soft Tissue Mobilization 1 Body Location Pracervicals, upper traps, parathoracis Mobilization Type Myofascial Release Rolling Trigger Point Release Body Position Prone PT-OP-R Modalities Start: 03/25/19 17:34 Freq: Status: Active Protocol: Document 04/15/19 13:40 EA (Rec: 04/15/19 13:45 EA [id number]) Hot Pack/Cold Pack Treatment Hot Pack Location upper back and neck Treatment Duration (minutes) 10 Patient Tolerance Good PT-OP-T Assessment and Plan Start: 03/25/19 17:34 Freq: Status: Active Protocol: Document 04/15/19 13:40 EA (Rec: 04/15/19 13:45 EA [id number]) Physical Therapy Assessment Assessment Summary Assessment Improve exercises performance with no discomfort noted during treatment. Patient is progressing very well.
--- NOTE | 2019-04-22 13:59 | PT.OTN ---
Current Diagnoses Pain in right shoulder (04/22/19) Pain in left shoulder (04/22/19) Spinal stenosis, cervical region (04/22/19) Physical Therapy Treatment Note PT-OP-A Visit Information Start: 03/25/19 17:34 Freq: Status: Active Protocol: Document 04/22/19 13:48 EA (Rec: 04/22/19 13:56 EA [id number]) Out-Patient Physical Therapy Visit Information Visit Information Visit Type Treatment Note Visit Start Time 13:00 Visit Stop Time 13:49 Total Visit Minutes 49 Visit Number 6 PT-OP-B Current Condition Start: 03/25/19 17:34 Freq: Status: Active Protocol: Document 03/25/19 17:30 EA (Rec: 03/26/19 15:01 EA [id number]) Current Condition History of Current Condition Onset Date 2 years ago Current Complaints Multiple spinal and shoulder joint pain. History of Current Condition Patient reports that she has been complaining low,mid,and upper back pain since 2017. She reports an avid runner with distance accumulation of 100 miles per month. She states that she never do any leg strenghening an even stretching. She denies any significant injury recently and she reports that she just get over her pain everyday. She reports X-rays were taken 1 1/2 year ago with diagnosis of multiple spine/shoulder OA. Prior Treatments and Tests Formal PT treament to both knees more than a year ago X-rays a year and half ago. Future Testing and Treatments Planned None reported. Treatment Goals Patient/Caregiver Goals 1. To learn exercise technique that could prevent to severe condition 2. To be able to run with no post back pain Prior Functional Status Baseline Function- ADL's Independent Baseline Function- Mobility Independent Baseline Function- Gait stiffed pelvis Baseline Function- Work/School Just finished college schooling. Used to work in [employer]. Baseline Function- Recreation/Hobbies Runs 100 miles/ week Current Functional Impairments (Reported) Functional Limitations- ADL's Indep. Pain and difficulty with activites that requires kneeling to both knees. Functional Limitations- Mobility/Gait increased toes out Functional Limitations- Work/School Not at work at this time. Just finished college school Functional Limitations- Recreation/ Unable to run 100 miles a week Hobbies due to increasing pain to both knees during and neck, thoracic, and low back pain post exercises. Personal Factors Other Personal Factors That May Effect Back pain, Vision problems Therapy/Recovery PT-OP-C Subjective Start: 03/25/19 17:34 Freq: Status: Active Protocol: Document 04/22/19 13:48 EA (Rec: 04/22/19 13:56 EA [id number]) OP-PT Subjective Patient Comments Patient Comments Patient reports climb up [place] last at night last weekends with no reports of neck and shoulder problems; she reports she has been compliant with HEP. She also mentioned that this would be her last session and okay to discharge from skilled PT. PT-OP-J Posture/Palpation/Skin Start: 03/25/19 17:34 Freq: Status: Active Protocol: Document 03/25/19 17:35 EA (Rec: 04/01/19 10:12 EA [id number]) Posture Evaluation Comments Posture Comments Good upper body posture with very slight fwd head and rounded shoulders Bilateral knee Valgus. Biltaral severe depressed foot arch/pes miki Palpation Assessment Location One Palpation Location B traps, ,left lat mid cervical, Parspinals & thoracis, scap borde Palpation Findings Soft Tissue Tightness Tenderness Trigger Point PT-OP-K Range of Motion Start: 03/25/19 17:34 Freq: Status: Active Protocol: Document 03/25/19 17:35 EA (Rec: 04/01/19 10:12 EA [id number]) Cervical Spine Range of Motion Cervical Spine Active Percentage Testing Position Sitting Flexion 100 Extension 95 Rotation Left 90 Rotation Right 95 Lateral Flexion Left 90 Lateral Flexion Right 90 ROM Limitations Soft Tissue Tightness Lumbar Spine Range of Motion Lumbar Spine Active Percentage Testing Position Standing Flexion 100 Extension 95 Rotation Left 100 Rotation Right 100 Lateral Flexion Left 95 Lateral Flexion Right 95 ROM Limitations Soft Tissue Tightness Shoulder Goniometric Range of Motion Shoulder Right Active Shoulder ROM WFL Yes Internal Rotation 50 Left Active Shoulder ROM WFL Yes Internal Rotation 50 Hip Goniometric Range of Motion Hip Right Active Hip ROM WFL Yes Left Active Hip ROM WFL Yes Knee Goniometric Range of Motion Knee Left Knee ROM WFL Yes Right Knee ROM WFL Yes PT-OP-L Special Tests Start: 03/25/19 17:34 Freq: Status: Active Protocol: Document 03/25/19 17:35 EA (Rec: 04/01/19 10:12 EA [id number]) Special Tests Shoulder Special Tests Kathleen Juan Francisco Impingement Test Results - Elevation Impingement Test Results - PT-OP-M Strength Start: 03/25/19 17:34 Freq: Status: Active Protocol: Document 03/25/19 17:35 EA (Rec: 04/01/19 10:12 EA [id number]) Cervical Spine Strength Cervical Spine Manual Muscle Testing Testing Position Supine Reason Not Measured WFL Trunk Strength Trunk Manual Muscle Testing Testing Position Supine Reason Not Measured WFL Shoulder Strength Shoulder Manual Muscle Testing Right Reason Not Measured WFL Left Reason Not Measured WFL PT-OP-Q Treatments Start: 03/25/19 17:34 Freq: Status: Active Protocol: Document 04/22/19 13:48 EA (Rec: 04/22/19 13:56 EA [id number]) Cardio Equipment Treadmill Duration (Minutes) 5 Speed 3.7-5 Gym Equipment Cable Column (Body Solid) Other- 1 Details Cable sit to stand row Resistance 30# Reps/Time x15 reps x 2 Therapeutic Exercises Supine Exercises 3 Supine Exercise Name Partial sit-up w/ marching Reps/Minutes x 20 reps x 2 sets Comments HEP comp 2 Supine Exercise Name PPT with SLR Reps/Minutes 10 reps x 2 sets each leg Comments HEP comp 1 Supine Exercise Name PPT w/ marching Reps/Minutes x 20 reps x 2 sets Prone Exercises 1 Prone Exercise Name Passive quads stretch Reps/Minutes x 15sh x 2 reps Comments HEP comp Standing Exercises 1 Standing Exercise Name Side steps quats with shoulder press Resistance 5# Reps/Minutes x 12 ft x 3 laps Other Exercises 5 Other Exercise Name Elbow Plank: Leg side to side, Mountain climber, hip extension Reps/Minutes x 30 sec each 4 Other Exercise Name side step squat with DB front raise Resistance GTB Reps/Minutes x 12 ft x 2 laps 3 Other Exercise Name Nichole pose Reps/Minutes x 30SH x 2 reps 2 Other Exercise Name Camel and Cat Reps/Minutes x 15 reps Comments HEP comp 1 Other Exercise Name Thread and needle Reps/Minutes x 10 reps x 2 sets Manual Therapy Treatment Soft Tissue Mobilization 1 Body Location Pracervicals, upper traps, parathoracis Mobilization Type Myofascial Release Rolling Trigger Point Release Body Position Prone PT-OP-R Modalities Start: 03/25/19 17:34 Freq: Status: Active Protocol: Document 04/22/19 13:56 EA (Rec: 04/22/19 13:57 EA [id number]) Hot Pack/Cold Pack Treatment Hot Pack Location upper back and neck Treatment Duration (minutes) 10 Patient Tolerance Good PT-OP-T Assessment and Plan Start: 03/25/19 17:34 Freq: Status: Active Protocol: Document 04/22/19 13:48 EA (Rec: 04/22/19 13:56 EA [id number]) Physical Therapy Assessment Assessment Summary Assessment Pt exhibits high tolerance to advance exercises and did not complaint any difficulty at this time except with kneeling to both knees but much improved as patient able to knee > 5 mins. Patient is discharge today per her request. Physical Therapy Plan Discharge Physical Therapy Discharge Reasons Patient Request Next Visit Focus/Plan Next Note Type Discharge Summary
== END 2019-04-26 10:02 | disposition home or self-care (01) ==
LOC: PHYS 13:00
PROVIDERS: PCP Family Medicine; Visit Provider Physician Assistant
DX: M48.02 Spinal stenosis, cervical region (principal); M25.512 Pain in left shoulder; M25.511 Pain in right shoulder
CPT/HCPCS: 97010; 97110; 97140; 97162

== ENCOUNTER → 2021-03-12 12:44 | Outpatient (CLI) | payer MEDICAID, SELFPAY ==
--- NOTE | 2021-03-12 12:45 | DI.US.S_ITS ---
PROCEDURE: US PELVIC COMPLETE INDICATIONS: PAIN TECHNIQUE: Real-time scanning was performed of the pelvic organs, with image documentation. Additional endovaginal scanning was necessary due to incomplete visualization of the adnexal and endometrial structures by transabdominal scanning. COMPARISON: [facility], , PELVIC COMPLETE, 01/25/2017, 13:28. FINDINGS: Uterus: Uterus is normal in size at 7.2 x 3.1 x 4.3 cm. The endometrium measures 2.4 mm in combined thickness. An intrauterine device is present. Ovaries: Several simple cysts on the right are present, largest of which measured 26 mm in 23 mm. Left ovary is within normal limits. Other: No pathologic free abdominal or pelvic fluid. IMPRESSION: Appropriate positioning of intrauterine device. Negative examination. Dictated by: Kike Shelton M.D. on 03/12/2021 at 14:22 Approved by: Kike Shelton M.D. on 03/12/2021 at 14:23
== END ==
PROVIDERS: PCP Family Medicine; Referring Provider Family Medicine; Visit Provider Family Medicine
DX: R10.2 Pelvic and perineal pain (principal); N83.291 Other ovarian cyst, right side; Z97.5 Presence of (intrauterine) contraceptive device
CPT/HCPCS: 76830; 76856

== ENCOUNTER → 2024-11-25 11:57 | Outpatient (CLI) | payer MEDICAID, SELFPAY ==
--- NOTE | 2024-11-25 | DI.RAD.S_ITS ---
PROCEDURE: XR KNEE LT 3V INDICATIONS: PAIN TECHNIQUE: 3 views of the knee were acquired. COMPARISON: [facility], , KNEE 3V LEFT, 05/17/2016, 12:26. FINDINGS: Bones: No fractures or dislocations. No suspicious bony lesions. Moderate to severe medial and lateral tibiofemoral and moderate patellofemoral compartment narrowing with associated osteophytosis. Valgus angulation noted. Soft tissues: No joint effusion. No suspicious soft tissue calcifications. IMPRESSION: KL grade 3 tricompartmental osteoarthritis without evidence of acute osseous abnormality. Valgus angulation. Dictated by: Ryan Seymour M.D. on 11/26/2024 at 2:49 Approved by: Ryan Seymour M.D. on 11/26/2024 at 3:10
--- NOTE | 2024-11-25 12:01 | DI.RAD.S_ITS ---
PROCEDURE: XR KNEE RT 3V INDICATIONS: KNEE/BACK PAIN TECHNIQUE: 3 views of the knee were acquired. COMPARISON: [facility], , KNEE 3V LEFT, 05/17/2016, 12:26. FINDINGS: Bones: No fractures or dislocations. No suspicious bony lesions. Moderate to severe lateral and moderate medial tibiofemoral and moderate to severe patellofemoral compartment narrowing with associated osteophytosis. Valgus angulation noted. Soft tissues: No joint effusion. No suspicious soft tissue calcifications. IMPRESSION: KL grade 3 tricompartmental osteoarthritis without evidence of acute osseous abnormality. Valgus angulation noted. Dictated by: Ryan Seymour M.D. on 11/26/2024 at 3:10 Approved by: Ryan Seymour M.D. on 11/26/2024 at 3:11
--- NOTE | 2024-11-25 12:02 | DI.RAD.S_ITS ---
PROCEDURE: XR LUMBAR SPINE 2-3V INDICATIONS: KNEE/BACK PAIN TECHNIQUE: 3 views of the lumbar spine were acquired. COMPARISON: [facility], , L-SPINE 2-3 VIEWS, 03/31/2017, 12:25. FINDINGS: Bones: 5 [id number] vertebrae are present. Grade 1 anterolisthesis of L4 on L5 measures 0.7 cm. There is otherwise normal bony alignment. Severe L5-S1 and moderate L4-L5 disc height loss with adjacent endplate sclerosis and anterior osteophytosis. No vertebral body compression fractures. No suspicious bony lesions. Soft tissues: Overlying bowel gas pattern is normal. No suspicious soft tissue calcifications. IMPRESSION: Spondylosis and spondylolisthesis, most notably at the L4-L5 and L5-S1 levels. No evidence of acute osseous abnormality. Dictated by: Ryan Seymour M.D. on 11/26/2024 at 3:11 Approved by: Ryan Seymour M.D. on 11/26/2024 at 3:13
== END ==
PROVIDERS: PCP Nurse Practitioner Family; Referring Provider Nurse Practitioner Family; Visit Provider Nurse Practitioner Family
DX: M17.0 Bilateral primary osteoarthritis of knee (principal); M25.561 Pain in right knee; M25.562 Pain in left knee; M47.816 Spondylosis without myelopathy or radiculopathy, lumbar region; M43.16 Spondylolisthesis, lumbar region; M47.817 Spondylosis without myelopathy or radiculopathy, lumbosacral region; M43.17 Spondylolisthesis, lumbosacral region; M54.50 Low back pain, unspecified; M21.062 Valgus deformity, not elsewhere classified, left knee; M21.061 Valgus deformity, not elsewhere classified, right knee
CPT/HCPCS: 72100; 73562

== ENCOUNTER → 2024-12-09 06:42 | Outpatient (CLI) | payer MEDICAID, SELFPAY ==
--- NOTE | 2024-12-09 06:44 | DI.US.S_ITS ---
PROCEDURE: US ABDOMEN LIMITED INDICATIONS: HX OF LIVER FAILURE TECHNIQUE: Real-time scanning was performed of the abdominal and retroperitoneal organs, with image documentation. COMPARISON: Ultrasound abdomen 01/25/2017 [facility] FINDINGS: Liver: Liver is normal in size and homogeneous in echotexture. Gallbladder: Gallbladder is nondistended. No gallstones. No ultrasound evidence of gallbladder wall thickening or pericholecystic fluid. Biliary ducts: Intrahepatic bile ducts are non-dilated. Extrahepatic bile duct caliber measures 5 mm. Normal is 6-7 mm or less in diameter. Pancreas: Visualized portions of the pancreas are sonographically normal. Miscellaneous: No free abdominal fluid. IMPRESSION: Negative. If symptoms persist or worsen, or there is high clinical suspicion of abdominal abnormality, CT could be performed. Dictated by: Nick Ayala M.D. on 12/09/2024 at 8:46 Approved by: Nick Ayala M.D. on 12/09/2024 at 8:54
== END ==
LOC: US 06:42
PROVIDERS: PCP Nurse Practitioner Family; Referring Provider Nurse Practitioner Family; Visit Provider Nurse Practitioner Family
DX: Z87.19 Personal history of other diseases of the digestive system (principal); Z09 Encounter for follow-up examination after completed treatment for conditions other than malignant neoplasm
CPT/HCPCS: 76705